=== PATIENT | female | born 1990 | race Caucasian/White ===

== ENCOUNTER 2020-11-14 19:09 | Emergency (ER) | payer OTHER, SELFPAY | END 2020-11-14 20:43 | disposition home or self-care (01) | LOC: MADERS 19:09 | DX: R05 Cough (principal); R09.81 Nasal congestion; R43.8 Other disturbances of smell and taste; R50.9 Fever, unspecified; Z20.822 Contact with and (suspected) exposure to COVID-19 | CPT/HCPCS: 99283 ==